=== PATIENT | female | born 1970 | race Caucasian/White ===

== ENCOUNTER 2018-07-06 04:20 | Emergency (ER) | payer OTHER ==
[~2018-07-06] VITALS: Ht 175.3 cm; Wt 150.0 kg
[~2018-07-06 04:20] MED LIST: BACTRIM DS 8001 TAB PO; BACTROBAN15 GM TOP; NO HOME MEDICATIONS; NORCO 325 MG-7.1 TAB PO; PERCOCET 325 MG1 TA2 PO; PREDNISONE20 MG PO; TAMIFLU75 MG PO; ULTRAM 50MG TAB50 MG PO; VENTOLIN0.09 MG IH
[2018-07-06 04:26] VITALS: TEMP 97.8
[2018-07-06 05:10] LABS: BASO % 0.4 % (0.0-2.0); EOS # 0.2 (0.0-0.7); EOS % 3.6 % (0-4.0); GRAN # 2.4 (1.4-6.5); GRAN % 47.7 % (42.2-75.2); HEMOGLOBIN 11.4 g/dl (12.5-16.0); LYMPH # 1.9 (1.2-3.4); LYMPH % 38.3 % (20.0-51.0); MEAN CELL VOLUME 92 fl (80.0-100.0); MEAN CORPUSCULAR HEMOGLOBIN 30 pg (27.0-31.0); MEAN CORPUSCULAR HGB CONC 32 g/dl (33.0-37.0); MEAN PLATELET VOLUME 10.5 fl (7.4-10.4); MONO # 0.5 (0.1-0.6); MONO % 9.8 % (1.7-9.3); PLATELET COUNT 230 K/mm3 (130-400); RED BLOOD COUNT 3.86 M/mm3 (4.10-5.30); REDCELL DISTRIBUTION WIDTH-CV 12.9 % (11.5-14.5)
[2018-07-06 05:11] LABS: HEMATOCRIT 35.5 % (37.0-47.0)
[2018-07-06 05:59] LABS: ALANINE AMINOTRANSFERASE 36 U/L (9-52); ALBUMIN 3.8 gm/dL (3.5-5.0); ALKALINE PHOSPHATASE 86 U/L (50-136); ANION GAP 11 mmol/L (7-16); AST,SGOT 42 U/L (15-37); BILIRUBIN,TOTAL 0.5 mg/dL (0.0-1.0); BLOOD UREA NITROGEN 21 mg/dL (7-17); CALCIUM 8.8 mg/dL (8.4-10.2); CARBON DIOXIDE 21 mmol/L (22-30); CHLORIDE 108 mmol/L (98-107); CREATINE KINASE 59 U/L (30-135); CREATININE, serum 0.74 mg/dL (0.52-1.25); GLUCOSE 111 mg/dL (74-106); POTASSIUM 3.8 mmol/L (3.4-5.0); SODIUM 140 mmol/L (137-145); TOTAL PROTEIN 10.5 gm/dL (6.4-8.2); TROPONIN-I < 0.012 ng/mL (0.000-0.034)
[2018-07-06] MEDS ORDERED: NAPROSYN500 MG PO (06:10)
[2018-07-06 06:21] VITALS: BP 127/54; PULSE 76
== END 2018-07-06 06:21 | disposition home or self-care (01) ==
LOC: COL.ER 04:20
PROVIDERS: Emergency Medicine
DX: M54.9 Dorsalgia, unspecified (principal); Z98.890 Other specified postprocedural states; Z88.0 Allergy status to penicillin
CPT/HCPCS: J1885